=== PATIENT | male | born 1970 | race American Indian/Alaskan Native ===

== ENCOUNTER 2018-10-18 01:28 | Emergency (ER) | payer OTHER ==
[2018-10-18 01:56] LABS: Hematocrit 41.9 % (35.5-45.6); Hemoglobin 14.1 gm/dl (11.8-15.2); Mean Corpuscular HGB Conc 34 % (32-34); Mean Corpuscular Volume 95 fl (84-94); Platelet Count 156 K/mm3 (140-440); Red Blood Count 4.42 M/mm3 (3.65-5.03); Red Cell Distribution Width 13.5 % (13.2-15.2)
[2018-10-18 02:09] LABS: BUN/Creatinine Ratio 14; Blood Urea Nitrogen 18 mg/dL (9-20); Calcium 9.3 mg/dL (8.4-10.2); Hemolysis Index 30
--- NOTE | 2018-10-18 03:49 | Emergency Department Report ---
ED Seizure HPI - General Chief Complaint: Seizure Stated Complaint: LIGHT HEADED Time Seen by Provider: 10/18/18 03:07 Source: patient Mode of arrival: Ambulatory Limitations: No Limitations - History of Present Illness Initial Comments: 48-year-old male with a remote history of seizures presents to the Hospital stating he felt like he was going to have a seizure earlier today. Patient had 5-6 seizures in his lifetime as seizure was 2-3 years ago. He has been on medications [facility] in the past. Today he felt lightheaded while and relating to the bathroom to urinate. He lay down and reports diaphoresis. He states he has had similar symptoms in the past with seizures. Patient denied headache, chest pain, shortness of breath, abdominal pain, or diarrhea. He has some mild nausea and states he vomited 5-6 times in the ED after arrival and now feels completely back to normal. - Related Data Allergies Allergy/AdvReac Type Severity Reaction Status Date / Time No Known Allergies Allergy Verified 10/18/18 01:34 ED Review of Systems ROS: Stated complaint: LIGHT HEADED Other details as noted in HPI Comment: All other systems reviewed and negative ED Past Medical Hx - Past Medical History Previous Medical History?: Yes Hx Seizures: Yes (no meds) - Surgical History Past Surgical History?: No - Social History Smoking Status: Never Smoker Substance Use Type: None ED Physical Exam - General Limitations: No Limitations - Other Other exam information: Gen.: No acute distress Head: Atraumatic Eyes: Normal appearance EENT: Moist mucous membranes Neck: Normal appearance, no posterior midline tenderness, no meningismus Chest: Clear to auscultation bilaterally Cardiovascular: Regular rate and rhythm Abdomen: Normal appearance, soft, nontender, no rebound or guarding, normal bowel sounds Back: Normal appearance, nontender Extremity: Full range of motion, normal appearance Neuro: Alert, clear speech, no focal motor or sensory deficit Psychiatric: Appropriate Skin: No rash ED Course Vital Signs 10/18/18 10/18/18 01:33 03:01 Temperature 98.1 F 98.2 F Pulse Rate 61 57 L Respiratory 14 13 Rate Blood Pressure 132/75 Blood Pressure 116/71 [Left] O2 Sat by Pulse 96 99 Oximetry - Reevaluation(s) Reevaluation #1: 10/18/18 04:14 pt ambulated in ed and reports feeling better ED Medical Decision Making - Lab Data Result diagrams: 10/18/18 01:46 10/18/18 01:46 Lab Results 10/18/18 10/18/18 10/18/18 Range/Units 01:45 01:46 01:46 WBC 5.7 (4.5-11.0) K/mm3 RBC 4.42 (3.65-5.03) M/mm3 Hgb 14.1 (11.8-15.2) gm/dl Hct 41.9 (35.5-45.6) % MCV 95 H (84-94) fl MCH 32 (28-32) pg MCHC 34 (32-34) % RDW 13.5 (13.2-15.2) % Plt Count 156 (140-440) K/mm3 Sodium 143 (137-145) mmol/L Potassium 4.1 (3.6-5.0) mmol/L Chloride 104.8 (98-107) mmol/L Carbon Dioxide 27 (22-30) mmol/L Anion Gap 15 mmol/L BUN 18 (9-20) mg/dL Creatinine 1.3 (0.8-1.5) mg/dL Estimated GFR > 60 ml/min BUN/Creatinine Ratio 14 % Glucose 106 H (75-100) mg/dL POC Glucose 100 (70-105) Calcium 9.3 (8.4-10.2) mg/dL - EKG Data -: EKG Interpreted by Me EKG shows normal: sinus rhythm, axis (qrs 60), QRS complexes (qrsd 92), ST-T waves (no stemi) Rate: bradycardia (49) - Medical Decision Making Patient feeling back to normal prior to my evaluation. Patient had episode of lightheadedness with diaphoresis without any pain complaints. Patient has several episodes of vomiting but reports he is back to his baseline. He states he's had similar symptoms in the past related to seizures but did not have any seizure activity today. Patient be discharged home to follow up with PMD. - Differential Diagnosis near syncope, lightheaded, viral syndrome Critical Care Time: No Critical care attestation.: If time is entered above; I have spent that time in minutes in the direct care of this critically ill patient, excluding procedure time. ED Disposition Clinical Impression: Episodic lightheadedness, Hx of seizure disorder, Vomiting Disposition: DC-01 TO HOME OR SELFCARE Is pt being admited?: No Does the pt Need Aspirin: No Condition: Stable Instructions: Acute Nausea and Vomiting (ED), Lightheadedness (ED), Recurrent Seizures Adult (ED) Additional Instructions: Take the medication as prescribed. Follow-up with your doctor or with the doctor/clinic provided. Return if symptoms worsen as indicated by your discharge instructions. Referrals: PRIMARY CARE, [Primary Care Provider] - 3-5 Days Time of Disposition: 04:25
[2018-10-18 04:52] VITALS: BP 136/82
== END 2018-10-18 04:54 | disposition home or self-care (01) ==
LOC: ED 01:28
DX: G40.909 Epilepsy, unspecified, not intractable, without status epilepticus (principal); R42 Dizziness and giddiness; R11.2 Nausea with vomiting, unspecified
CPT/HCPCS: 36415; 80048; 82962; 85027; 93005; 93010; 99284